=== PATIENT | female | born 1950 | race Two or more races ===

== ENCOUNTER 2025-03-22 22:43 | Inpatient (IN) | payer OTHER ==
[~2025-03-22] VITALS: Ht 167.6 cm; Wt 73.5 kg
[2025-03-22] MEDS ORDERED: ATORVASTATIN CA10 MG PO (23:03)
[2025-03-22] MEDS ORDERED: 0.9 % SODIUM CHLORIDE 1,000 ML IV SCH (23:30)
[2025-03-22] MEDS ORDERED: AMIODARONE HCL 50 MG/ML AMPUL IV ONE (23:30)
[2025-03-22] MEDS ORDERED: ENOXAPARIN SODIUM 80 MG/0.8 ML SYRINGE SUBCUTANEO ONE (23:30)
[2025-03-22 23:46] LABS: BASO % 0.3 % (0.1-1.2); EOS # 0.05 (0.04-0.54); EOS % 0.4 % (0.7-7.0); LYMPH # 5.47 (1.18-3.74); LYMPH % 38.6 % (19.3-53.1); MEAN PLATELET VOLUME 10.10 fl (9.4-12.4); MONO # 1.16 (0.24-0.82); MONO % 8.2 % (4.7-12.5); NEUT # 7.38 (1.56-6.13); NEUT % 52.0 % (34.0-71.1); RED CELL DISTRIBUTION WIDTH 15.1 % (11.6-14.4)
[2025-03-23] VITALS (19 sets, daily range): BP systolic 100–138; BP diastolic 48–63; O2SAT 95–100
[2025-03-23 00:07] LABS: INR 0.97
[2025-03-23 00:12] LABS: ALT/SGPT 274.0 U/L (12-78); AST/SGOT 174.0 U/L (15-37); BILIRUBIN TOTAL 0.51 mg/dL (0.3-1.2); BUN CREA RATIO 19.0 (7.0-25.0); CREATININE SERUM 1.13 mg/dL (0.55-1.02); GFR 47.2; GLOBULINA 3.5 G/DL (2.4-3.5); LDH 390.0 U/L (84-246); OSMOLALITY SERUM 288.0 MOSM/KG (275-295); PHOSPHOKINASE CREATININE 104.0 U/L (26-192)
[2025-03-23 00:15] LABS: GLUCOSE FASTING 226.0 mg/dL (65-100)
[2025-03-23 00:23] LABS: TSH 1.71 uIU/mL (0.358-3.74)
[2025-03-23] MEDS ORDERED: FAMOTIDINE/PF 20 MG in 0.9 % SODIUM CHLORIDE 8 ML IV PUSH SCH (00:28)
[2025-03-23] MEDS ORDERED: 0.9 % SODIUM CHLORIDE 1,000 ML IV SCH (00:30)
[2025-03-23] MEDS ORDERED: CEFTRIAXONE SODIUM 2,000 MG in 0.9 % SODIUM CHLORIDE 100 ML IV SCH (00:30)
[2025-03-23] MEDS ORDERED: ACETAMINOPHEN 500 MG GEL..CAP PO PRN (00:30)
[2025-03-23 02:12] LABS: CHOL HDL RATIO 2.1 (0-5.0); HDL 59.0 mg/dl (40-60); LDL 51.0 mg/dl (0-130); TSH 0.99 uIU/mL (0.358-3.74); VLDL 13.0 (0-39)
[2025-03-23 03:30] LABS: URINE APPEARANCE Clear; URINE BILIRRUBIN Negative (NEGATIVE); URINE BLOOD Negative; URINE COLOR Yellow; URINE GLUCOSE Negative (NEGATIVE); URINE KETONE Negative (NEGATIVE); URINE LEUKOCYTE Trace; URINE NITRATE Negative; URINE PROTEIN Negative (NEGATIVE); URINE UROBILINOGEN 0.2 E.U./dl
[2025-03-23 03:33] LABS: URINE BACTERIA 39.6 uL (0.0-1933); URINE EPITHELIAL CELLS 4.1 uL (0.0-38.8); URINE RBC 2.4 uL (0.0-20.8); URINE WBC 8.1 uL (0.0-23.2)
[2025-03-23 03:35] LABS: URINE CAST 0.00 uL (0.0-1.40)
[2025-03-23] MEDS ORDERED: AMIODARONE HCL 900 MG in DEXTROSE 5 % IN WATER 500 ML IV SCH (06:30)
[2025-03-23] MEDS ORDERED: ENOXAPARIN SODIUM 60 MG/0.6 ML SYRINGE SUBCUTANEO SCH (09:00)
[2025-03-23] MEDS ORDERED: ATORVASTATIN CALCIUM 40 MG TABLET PO SCH (09:00)
[2025-03-23] MEDS ORDERED: AMIODARONE HCL 500 ML IV SCH (16:15)
[2025-03-24] VITALS (8 sets, daily range): BP systolic 104–139; BP diastolic 58–78; O2SAT 94–98
[2025-03-24] MEDS ORDERED: AMIODARONE HCL 200 MG TABLET PO SCH (09:00)
[2025-03-24 10:47] LABS: ALT/SGPT 134.0 U/L (12-78); AST/SGOT 50.0 U/L (15-37); BILIRUBIN TOTAL 0.49 mg/dL (0.3-1.2); BUN CREA RATIO 10.0 (7.0-25.0); CHOL HDL RATIO 2.0 (0-5.0); CREATININE SERUM 0.81 mg/dL (0.55-1.02); GFR 69.31; GLOBULINA 3.2 G/DL (2.4-3.5); GLUCOSE FASTING 147.0 mg/dL (65-100); HDL 70.0 mg/dl (40-60); LDL 53.0 mg/dl (0-130); OSMOLALITY SERUM 286.0 MOSM/KG (275-295); TSH 0.916 uIU/mL (0.358-3.74); VLDL 13.0 (0-39)
[2025-03-24 11:01] LABS: BASO % 0.5 % (0.1-1.2); EOS # 0.10 (0.04-0.54); EOS % 1.0 % (0.7-7.0); LYMPH # 3.60 (1.18-3.74); LYMPH % 36.9 % (19.3-53.1); MEAN PLATELET VOLUME 10.90 fl (9.4-12.4); MONO # 0.68 (0.24-0.82); MONO % 7.0 % (4.7-12.5); NEUT # 5.28 (1.56-6.13); NEUT % 54.2 % (34.0-71.1); RED CELL DISTRIBUTION WIDTH 15.4 % (11.6-14.4)
[2025-03-25] VITALS (10 sets, daily range): BP systolic 95–159; BP diastolic 58–66; O2SAT 90–98
[2025-03-25] MEDS ORDERED: ENOXAPARIN SODIUM 40 MG/0.4 ML SYRINGE SUBCUTANEO SCH (09:00)
[2025-03-26 00:58] VITALS: BP 117/65; O2SAT 96
[2025-03-26] MEDS ORDERED: DIPHENHYDRAMINE HCL 50 MG/ML VIAL 1ML IV ONE (06:00)
[2025-03-26] MEDS ORDERED: METHYLPREDNISOLONE SOD SUCC 40 MG VIAL IV ONE (06:00)
[2025-03-26 06:20] VITALS: O2SAT 96
[2025-03-26 09:31] VITALS: BP 128/69
[2025-03-26 09:45] VITALS: O2SAT 97
[2025-03-26 13:18] VITALS: O2SAT 96
== END 2025-03-26 13:46 | disposition home or self-care (01) | DRG 309 ==
LOC: ER 22:43 → MEDI 03-23 00:30 → ICU-2 03-23 00:30 → SEC-K 03-23 10:51 → MEDI 03-23 15:05
PROVIDERS: General Practice; ADMIT Student in an Organized Health Care Education/Training Program; ATTEND Student in an Organized Health Care Education/Training Program
PROC: 4A12X4Z Monitoring of Cardiac Electrical Activity, External Approach (ICD-10-PCS; principal; 2025-03-23)
PROC: B246ZZZ Ultrasonography of Right and Left Heart (ICD-10-PCS; 2025-03-23)
DX: I47.19 Other supraventricular tachycardia (principal); R65.10 Systemic inflammatory response syndrome (SIRS) of non-infectious origin without acute organ dysfunction; I11.9 Hypertensive heart disease without heart failure; D72.829 Elevated white blood cell count, unspecified; E78.5 Hyperlipidemia, unspecified